=== PATIENT | male | born 1985 | race Two or more races ===

== ENCOUNTER 2016-03-18 19:29 | Emergency (ER) | payer MEDICAID ==
[~2016-03-18] VITALS: Ht 180.3 cm; Wt 98.9 kg
[~2016-03-18 19:29] MED LIST: CYCLOBENZAPRINE10 MG ORAL; IBUPROFEN600 MG ORAL; PERCOCET 5-3251 EACH ORAL
[2016-03-18 20:23] VITALS: BP 137/63
[2016-03-18] MEDS ORDERED: IBUPROFEN600 MG ORAL (21:04)
[2016-03-18 21:15] VITALS: BP 137/63
--- NOTE | 2016-03-19 11:36 | Diagnostic Imaging Report ---
Indication: Pain Findings: 2 views of the right forearm were obtained. No acute fractures, malalignment, erosions or periostitis are identified. There is a compression plate reducing a fracture of the distal radius. Bone mineralization is within normal limits. Soft tissues are unremarkable. Impression: Negative examination of the forearm.
--- NOTE | 2016-03-22 03:35 | Emergency Room Report ---
History of Present Illness General Chief Complaint: Pain Source: Patient Present Illness HPI Patient is a 31-year-old male reported having increased swelling to his right wrist. Patient reported having recently gone back to work after physical therapy. Patient was noted to have previous surgery to the distal portion of his radius which had operative repair. Patient noted have increased swelling to the volar aspect of the wrist. The patient denied any discoloration or fevers. He denied severe pain. Patient was concerned about the increased swelling and presented for further evaluation. Allergies: Coded Allergies: No Known Allergies (Unverified , 11/07/15) Patient History Past Medical History: see triage record Reviewed Nursing Documentation: PMH: Agreed, PSxH: Agreed Review of Systems All Other Systems: negative except mentioned in HPI Physical Exam Vital Signs Date Time Temp Pulse Resp B/P Pulse Ox O2 Delivery O2 Flow Rate FiO2 03/18/16 20:13 98.1 79 15 137/63 99 Room Air General Appearance: well appearing, no apparent distress, alert, GCS 15, non- toxic Head: normocephalic, atraumatic ENT: hearing grossly normal, normal voice Neck: full range of motion, supple Respiratory: no respiratory distress, speaking full sentences Cardiovascular #1: normal inspection, normal peripheral pulses, regular rate, rhythm Gastrointestinal: normal inspection, normal bowel sounds, non tender, soft Musculoskeletal: back normal, digits/nails normal, no calf tenderness, swelling , other - swelling to forearm volar surface without erythema or fluctuance Neurologic: normal inspection, alert, oriented x3, responsive, 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 Differential diagnosis included but was not limited to fracture, contusion, vascular insufficiency, cellulitis. X-ray imaging of the right wrist was ordered due to patient's recent fracture. X-ray 2 views showed normal bony alignment with postsurgical changes without fracture. The patient is advised to follow up with primary care doctor in 1-2 days. Patient is advised to return if any worsening condition or if any changes in status that are concerning. Last Vital Signs Date Time Temp Pulse Resp B/P Pulse Ox O2 Delivery O2 Flow Rate FiO2 03/18/16 21:15 79 15 137/63 99 Room Air 03/18/16 20:23 98.1 Status: improved Disposition: HOME, SELF-CARE Condition: Improved Scripts Ibuprofen* (MOTRIN*) 600 Mg Tablet 600 MG ORAL THREE TIMES A DAY, #30 TAB Prov: Richardson Harrington 03/18/16 Referrals: [facility] (PCP) primary care physician Patient Instructions: Wrist Pain Richardson Harrington Mar 22, 2016 03:35
== END 2016-03-18 21:16 | disposition home or self-care (01) ==
LOC: EMR 20:45
DX: M79.89 Other specified soft tissue disorders (principal); M25.531 Pain in right wrist
CPT/HCPCS: 99283

== ENCOUNTER 2018-03-09 21:04 | Emergency (ER) | payer MEDICAID ==
[~2018-03-09] VITALS: Ht 180.3 cm; Wt 101.2 kg
[2018-03-09 21:48] VITALS: BP 128/86
[2018-03-09] MEDS ORDERED: NKM (21:51)
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
--- NOTE | 2018-03-09 22:09 | NUR ---
ED Nurse Note: no obvious deformity, contusion or open wound.
[2018-03-09] MEDS ORDERED: LIDODERM700 M1 TOPIC (22:21)
[2018-03-09] MEDS ORDERED: ROBAXIN-750750 MG PO (22:21)
[2018-03-09] MEDS ORDERED: IBUPROFEN600 MG ORAL (22:21)
[2018-03-09 22:25] VITALS: BP 130/78
--- NOTE | 2018-03-09 22:29 | NUR ---
ED Nurse Note: pt discharge instruction provided w/ prescription, pt verbalized understanding and agrees with plan, pt advised to follow up with pcp in 2-3days, pt education done, pt left with all belongings, pt wristband removed, pt advised to return to ed if s/s wrosen or new s/s develop.
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
== END 2018-03-09 22:25 | disposition home or self-care (01) ==
LOC: EMR 21:53
DX: S39.012A Strain of muscle, fascia and tendon of lower back, initial encounter (principal); V43.52XA Car driver injured in collision with other type car in traffic accident, initial encounter; Y92.411 Interstate highway as the place of occurrence of the external cause
CPT/HCPCS: 99282

== ENCOUNTER 2018-03-17 07:33 | Emergency (ER) | payer MEDICAID ==
[~2018-03-17] VITALS: Ht 180.3 cm; Wt 99.8 kg
[~2018-03-17 07:33] MED LIST changes: +LIDODERM700 M1 TOPIC; +NKM; +ROBAXIN-750750 MG PO
[2018-03-17 07:50] VITALS: BP 138/78
--- NOTE | 2018-03-17 07:50 | NUR ---
ED Nurse Note: Pt AAO x4 present at ER c/o N/V/D since last night 2229. Pt reported he vomited about 10 times but including no blood. VSS, verbalized pain level 8/10 on abdomen. Calm and cooperative with initial assessment.
[2018-03-17] MEDS ORDERED: Lidocaine 2% Visc 15ml soln ORAL ONE (08:00)
[2018-03-17] MEDS ORDERED: Ketorolac 30mg Inj IV ONE (08:00)
[2018-03-17] MEDS ORDERED: Dicyclomine HCl 10mg/5ml oral soln ORAL ONE (08:00)
[2018-03-17] MEDS ORDERED: Mylanta II UD 30ml ORAL ONE (08:00)
[2018-03-17 08:10] LABS: HEMOGLOBIN 17.5 G/DL (14.2-18.0); MEAN CORPUSCULAR VOLUME 84 FL (80-99); PLATELET COUNT 304 K/UL (150-450); RED BLOOD COUNT 5.98 M/UL (4.70-6.10); RED CELL DISTRIBUTION WIDTH 12.1 % (11.6-14.8); WHITE BLOOD COUNT 16.4 K/UL (4.8-10.8)
--- NOTE | 2018-03-17 08:10 | Emergency Room Report ---
History of Present Illness General Chief Complaint: Abdominal Pain Source: Patient Present Illness HPI 33-year-old male presents ED for evaluation. Patient complaining of dull pain with vomiting and diarrhea since last night. Started around 10 PM after eating dinner. Has had multiple episodes of vomiting with some diarrhea. Pain is cramping, epigastric, 8 out of 10, nonradiating. Denies fevers or chills. Denies chest pain or shortness of breath. Denies sick contacts or recent travel. Denies recent antibiotic use. No other aggravating relieving factors. Denies any other associated symptoms Allergies: Coded Allergies: No Known Allergies (Unverified , 11/07/15) Patient History Past Medical History: none Past Surgical History: none Pertinent Family History: none Social History: Denies: smoking, alcohol use, drug use Immunizations: UTD Reviewed Nursing Documentation: PMH: Agreed; PSxH: Agreed Nursing Documentation-PMH Past Medical History: No Stated History Review of Systems All Other Systems: negative except mentioned in HPI Physical Exam Vital Signs Date Time Temp Pulse Resp B/P (MAP) Pulse Ox O2 Delivery O2 Flow Rate FiO2 03/17/18 07:38 98.1 93 18 93/ 98 Room Air Sp02 EP Interpretation: reviewed, normal General Appearance: no apparent distress, alert, GCS 15, non-toxic Head: normocephalic, atraumatic Eyes: bilateral eye normal inspection, bilateral eye PERRL ENT: hearing grossly normal, normal pharynx, no angioedema, normal voice Neck: full range of motion, supple/symm/no masses Respiratory: chest non-tender, lungs clear, normal breath sounds, speaking full sentences Cardiovascular #1: regular rate, rhythm, no edema Cardiovascular #2: 2+ carotid (R), 2+ carotid (L), 2+ radial (R), 2+ radial (L) , 2+ dorsalis pedis (R), 2+ dorsalis pedis (L) Gastrointestinal: normal bowel sounds, soft, non-distended, no guarding, no rebound, tenderness Rectal: deferred Genitourinary: normal inspection, no CVA tenderness Musculoskeletal: back normal, gait/station normal, normal range of motion, non- tender Neurologic: alert, oriented x3, responsive, motor strength/tone normal, sensory intact, speech normal Psychiatric: judgement/insight normal, memory normal, mood/affect normal, no suicidal/homicidal ideation Reflexes: 3+ bicep (R), 3+ bicep (L), 3+ tricep (R), 3+ tricep (L), 3+ knee (R) , 3+ knee (L) Skin: normal color, no rash, warm/dry, well hydrated Lymphatic: no adenopathy Medical Decision Making Diagnostic Impression: Primary Impression: Gastroenteritis ER Course Hospital Course 33-year-old M presents to ED with cramping abdominal pain with vomiting, diarrhea differential diagnosis: gastritis, SBO, cholecystits, gastroenteritis Clinical course Patient placed on stretcher. On vehicle monitor technician. After initial history and physical I ordered labs, IV fluids, Zofran, toradol and pepcid Labs - noted leukocytosis, electrolytes ok, LFTs normal Upon reassessment, patient states pain has improved. findings consistent with gastroenteritis Abdomen is soft. No guarding or rebound. I do not suspect acute abdomen. Likely viral versus food. Self-limited. We'll prescribe Zantac, Zofran, Bentyl. Patient instructed to return to ED if he develops worsening pain, fever, pain shifting to the right lower quadrant. Safe for discharge with close outpatient follow-up. We'll provide referrals I feel this is a highly complex case requiring extensive working including EKG/ Rhythm strip, Xray/CT/US, Blood/urine lab work, repeat exams while in ED, and administration of strong opiates/narcotics for pain control, admission to hospital or close patient follow up. Diagnosis - gastroenteritis Stable and discharged to home with prescriptions for Zantac, zofran, bentyl. Followup with PMD. Return to ED if symptoms recur or worsen Labs Test 03/17/18 08:00 White Blood Count 16.4 K/UL (4.8-10.8) Red Blood Count 5.98 M/UL (4.70-6.10) Hemoglobin 17.5 G/DL (14.2-18.0) Hematocrit 50.0 % (42.0-52.0) Mean Corpuscular Volume 84 FL (80-99) Mean Corpuscular Hemoglobin 29.2 PG (27.0-31.0) Mean Corpuscular Hemoglobin Concent 34.9 G/DL (32.0-36.0) Red Cell Distribution Width 12.1 % (11.6-14.8) Platelet Count 304 K/UL (150-450) Mean Platelet Volume 6.2 FL (6.5-10.1) Neutrophils (%) (Auto) % (45.0-75.0) Lymphocytes (%) (Auto) % (20.0-45.0) Monocytes (%) (Auto) % (1.0-10.0) Eosinophils (%) (Auto) % (0.0-3.0) Basophils (%) (Auto) % (0.0-2.0) Sodium Level 138 MMOL/L (136-145) Potassium Level 4.7 MMOL/L (3.5-5.1) Chloride Level 103 MMOL/L (98-107) Carbon Dioxide Level 26 MMOL/L (21-32) Anion Gap 9 mmol/L (5-15) Blood Urea Nitrogen 17 mg/dL (7-18) Creatinine 1.0 MG/DL (0.55-1.30) Estimat Glomerular Filtration Rate > 60 mL/min (>60) Glucose Level 137 MG/DL (74-106) Calcium Level 9.3 MG/DL (8.5-10.1) Total Bilirubin 1.2 MG/DL (0.2-1.0) Direct Bilirubin 0.2 MG/DL (0.0-0.3) Aspartate Amino Transf (AST/SGOT) 40 U/L (15-37) Alanine Aminotransferase (ALT/SGPT) 69 U/L (12-78) Alkaline Phosphatase 114 U/L (46-116) Total Protein 8.4 G/DL (6.4-8.2) Albumin 4.3 G/DL (3.4-5.0) Globulin 4.1 g/dL Albumin/Globulin Ratio 1.0 (1.0-2.7) Lipase 121 U/L (73-393) Last Vital Signs Date Time Temp Pulse Resp B/P (MAP) Pulse Ox O2 Delivery O2 Flow Rate FiO2 03/17/18 07:38 98.1 93 18 93/ 98 Room Air Status: improved Disposition: HOME, SELF-CARE Condition: Stable Scripts Dicyclomine Hcl* (DICYCLOMINE HCL*) 10 Mg Capsule 10 MG PO QID for 5 Days, CAP Prov: Yadiel Hopper MD 03/17/18 Ranitidine Hcl* (ZANTAC*) 150 Mg Tablet 150 MG ORAL TWICE A DAY, #30 TAB Prov: Yadiel Hopper MD 03/17/18 Ondansetron Odt* (ZOFRAN ODT*) 4 Mg Tab.rapdis 4 MG BC EVERY 6 HOURS PRN for Nausea & Vomiting, #10 TAB 0 Refills Prov: Yadiel Hopper MD 03/17/18 Referrals: [facility] (PCP) Yadiel Hopper MD Mar 17, 2018 08:10
[2018-03-17 08:20] LABS: ANION GAP 9 mmol/L (5-15); BLOOD UREA NITROGEN 17 mg/dL (7-18); CALCIUM 9.3 MG/DL (8.5-10.1); CARBON DIOXIDE 26 MMOL/L (21-32); CHLORIDE 103 MMOL/L (98-107); POTASSIUM 4.7 MMOL/L (3.5-5.1); SODIUM 138 MMOL/L (136-145)
[2018-03-17 08:31] LABS: ALANINE AMINOTRANSFERASE 69 U/L (12-78); ALBUMIN 4.3 G/DL (3.4-5.0); ALKALINE PHOSPHATASE 114 U/L (46-116); ASPARTATE AMINO TRANSFERASE 40 U/L (15-37); BILIRUBIN,DIRECT 0.2 MG/DL (0.0-0.3); BILIRUBIN,TOTAL 1.2 MG/DL (0.2-1.0)
[2018-03-17] MEDS ORDERED: RANITIDINE HCL150 MG ORAL (08:59)
[2018-03-17] MEDS ORDERED: ONDANSETRON ODT4 MG BC (08:59)
[2018-03-17] MEDS ORDERED: DICYCLOMINE HCL10 MG PO (08:59)
[2018-03-17 09:15] VITALS: BP 124/79
--- NOTE | 2018-03-17 09:15 | NUR ---
ED Nurse Note: Pt was cleared to be discharged after 1L of NS fluid done by ERMD. VSS, pt AAO x4, verbalized improved abdominal pain which is 4/10. Pt received prescriptions and discharge instruction. Pt verbalized understanding. Pt did not have N/V/D while being present at ER. Pt ambulated to be discharged. IV line and ID band removed.
== END 2018-03-17 09:15 | disposition home or self-care (01) ==
LOC: EMR 08:02
DX: K52.9 Noninfective gastroenteritis and colitis, unspecified (principal)
CPT/HCPCS: 36415; 80053; 82248; 83690; 85007; 85025; 96361; 96374; 96375; 99284; J1885; J2405; S0028

== ENCOUNTER 2018-05-17 09:02 | Emergency (ER) | payer MEDICAID ==
[~2018-05-17] VITALS: Ht 180.3 cm; Wt 99.8 kg
[~2018-05-17 09:02] MED LIST changes: +DICYCLOMINE HCL10 MG PO; +ONDANSETRON ODT4 MG BC; +RANITIDINE HCL150 MG ORAL
--- NOTE | 2018-05-17 09:10 | NUR ---
ED Nurse Note: Patient walked in by him self from home with steady gait, complaining of dizziness since yestrday. AAO x4, skin is dry, intact, warm to touch, VSS at this time. Per patient he had a lot fo stresses last week, and he feel it can cause dizziness.
[2018-05-17 09:25] VITALS: BP 117/67
[2018-05-17] MEDS ORDERED: Meclizine 25mg tab ORAL ONE (09:30)
[2018-05-17] MEDS ORDERED: Metoclopramide 10mg/2ml Inj IVP ONE (09:30)
[2018-05-17 09:40] LABS: BASOPHILS % (AUTO) 0.8 % (0.0-2.0); EOSINOPHILS % (AUTO) 0.4 % (0.0-3.0); HEMATOCRIT 46.6 % (42.0-52.0); LYMPHOCYTES % (AUTO) 11.6 % (20.0-45.0); MEAN CORPUSCULAR VOLUME 83 FL (80-99); MONOCYTES % (AUTO) 4.7 % (1.0-10.0); NEUTROPHILS % (AUTO) 82.6 % (45.0-75.0); PLATELET COUNT 320 K/UL (150-450); RED BLOOD COUNT 5.63 M/UL (4.70-6.10); RED CELL DISTRIBUTION WIDTH 12.2 % (11.6-14.8); WHITE BLOOD COUNT 11.7 K/UL (4.8-10.8)
[2018-05-17 09:54] LABS: ANION GAP 8 mmol/L (5-15); BLOOD UREA NITROGEN 14 mg/dL (7-18); CALCIUM 9.2 MG/DL (8.5-10.1); CARBON DIOXIDE 29 MMOL/L (21-32); CHLORIDE 101 MMOL/L (98-107); CREATININE 0.9 MG/DL (0.55-1.30); SODIUM 138 MMOL/L (136-145)
[2018-05-17 09:58] LABS: ALANINE AMINOTRANSFERASE 46 U/L (12-78); ALBUMIN 4.3 G/DL (3.4-5.0); ALBUMIN/GLOBULIN RATIO 1.1 (1.0-2.7); ALKALINE PHOSPHATASE 107 U/L (46-116); ASPARTATE AMINO TRANSFERASE 26 U/L (15-37); BILIRUBIN,TOTAL 0.7 MG/DL (0.2-1.0)
[2018-05-17 10:25] VITALS: BP 109/65
--- NOTE | 2018-05-17 10:26 | NUR ---
ED Nurse Note: patient is in the bed, sleeping. VSS at this time, no distress noticed.
[2018-05-17] MEDS ORDERED: MECLIZINE HCL25 MG ORAL (10:37)
--- NOTE | 2018-05-17 10:49 | Emergency Room Report ---
History of Present Illness General Chief Complaint: Dizziness Source: Patient Present Illness HPI 33-year-old male presents ED for evaluation. Complaining of dizziness. Had 2 episodes last night. Describes room spinning sensation. Feels somewhat dizzy at this time. Worse with sudden change in head position. Denies nausea or vomiting. Denies headache. Denies chest pain or shortness of breath. Denies photophobia or blurry vision. No other aggravating relieving factors. Denies any other associated symptoms Allergies: Coded Allergies: No Known Allergies (Unverified , 11/07/15) Patient History Past Medical History: none Past Surgical History: none Pertinent Family History: none Social History: Denies: smoking, alcohol use, drug use Immunizations: UTD Reviewed Nursing Documentation: PMH: Agreed; PSxH: Agreed Nursing Documentation-PMH Past Medical History: No Stated History Review of Systems All Other Systems: negative except mentioned in HPI Physical Exam Vital Signs Date Time Temp Pulse Resp B/P (MAP) Pulse Ox O2 Delivery O2 Flow Rate FiO2 05/17/18 09:04 97.3 65 19 122/79 98 Room Air Sp02 EP Interpretation: reviewed, normal General Appearance: no apparent distress, alert, GCS 15, non-toxic Head: normocephalic, atraumatic Eyes: bilateral eye normal inspection, bilateral eye PERRL, bilateral eye EOMI ENT: hearing grossly normal, normal pharynx, no angioedema, normal voice Neck: full range of motion, supple, no meningismus, supple/symm/no masses Respiratory: chest non-tender, lungs clear, normal breath sounds, speaking full sentences Cardiovascular #1: regular rate, rhythm, no edema Cardiovascular #2: 2+ carotid (R), 2+ carotid (L), 2+ radial (R), 2+ radial (L) , 2+ dorsalis pedis (R), 2+ dorsalis pedis (L) Gastrointestinal: normal bowel sounds, non tender, soft, non-distended, no guarding, no rebound Rectal: deferred Genitourinary: normal inspection, no CVA tenderness Musculoskeletal: back normal, gait/station normal, normal range of motion, non- tender Neurologic: alert, oriented x3, responsive, 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 fib, V. tach, CVA/ TIA, vertigo Clinical course Patient placed on stretcher. on registered nurse cardiac. After initial history and physical I ordered labs, EKG, IVFs, meclizine and reglan labs reviewed- no leukocytosis, hemoglobin/hematocrit stable, electrolytes okay , troponins negative EKG - NSR, no acute ischemic changes interpreted by me On reassessment patient feels better. Patient has no focal neurological deficits. CN 2 through 12 intact. Extraocular movements intact. No photophobia. No nuchal rigidity. Discussed findings with patient. Safe for discharge and close outpatient follow -up. Patient states he has a PMD I. I feel this is a highly complex case requiring extensive working including EKG/Rhythm strip, Xray/CT/US, Blood/urine lab work, repeat exams while in ED, and administration of strong opiates/narcotics for pain control, admission to hospital or close patient follow up. Diagnosis - vertigo stable and discharged to home with prescription for meclizine. Followup with PMD. Return to ED if symptoms recur or worsen Last Vital Signs Date Time Temp Pulse Resp B/P (MAP) Pulse Ox O2 Delivery O2 Flow Rate FiO2 05/17/18 10:25 98.0 57 12 109/65 100 Room Air Status: improved Disposition: HOME, SELF-CARE Condition: Stable Scripts Meclizine Hcl* (MECLIZINE*) 25 Mg Tablet 25 MG ORAL THREE TIMES A DAY for 10 Days, TAB Prov: Yadiel Hopper MD 05/17/18 Patient Instructions: Vertigo, David Mane[employer]ver Self-Care Yadiel Hopper MD May 17, 2018 10:49
[2018-05-17 10:50] VITALS: BP 110/65
--- NOTE | 2018-05-17 10:52 | NUR ---
ER DISCHARGE NOTE: Patient is cleared to be discharged per ERMD, pt is aox4, on room air, with stable vital signs. pt was given dc and prescription instructions, pt was able to verbalize understanding, pt id band and iv site removed without complications. pt is able to ambulate with steady gait. pt took all belongings.
== END 2018-05-17 10:53 | disposition home or self-care (01) ==
LOC: EMR 09:29
DX: R42 Dizziness and giddiness (principal)
CPT/HCPCS: 36415; 80053; 84484; 85025; 93005; 96361; 96374; 99284; J2765